=== PATIENT | female | born 1990 | race Caucasian/White ===

== ENCOUNTER → 2024-07-06 15:07 | Outpatient (BNVA) | payer MEDICAID, SELFPAY | PROVIDERS: Referring Provider Nurse Practitioner Family; Visit Provider Obstetrics & Gynecology | DX: N93.9 Abnormal uterine and vaginal bleeding, unspecified (principal) | CPT/HCPCS: 82670; 83001; 84146; 84443 ==

== ENCOUNTER 2024-09-04 05:42 | Day surgery (SDC) | payer MEDICAID, SELFPAY ==
--- NOTE | 2024-08-27 10:54 | P.ANESASSM_ITS ---
Pre-Anesthetic Assessment Height/Weight: Height 1.75 m Preop Diagnosis: Abnormal uterine bleeding, endometrial polyp Operation Date: 09/04/24 07:10 Proposed Procedures p Hysteroscopy w/ Myosure(Not Applicable) - Jesus Alberto Cornell MD s Dilation And Curettage (D&C) 71074, 40437, N84.0(Not Applicable) - Jesus Alberto Cornell MD Familial anesthetic complications: None Social No alcohol and No tobacco Exam alert, oriented x 3, clear to auscultation bilaterally and regular rate & rhythm Airway Mallampati: Class II Dentition: other (missing) Anesthetic Plan ASA status: 1 Anesthesia: General Risk of > 500 ml blood loss (7ml/kg in children): No Medications/Allergies Home Medications Medication Instructions Recorded Confirmed Last Taken Type No Known Home Medications 07/06/24 08/27/24 Unknown History Allergies Allergy/AdvReac Type Severity Reaction Status Date / Time No Known Allergies Allergy Verified 08/27/24 10:24 [facility] Anesthesia Family History Denies family history of Colon cancer Ovarian cancer Prostate cancer Diabetes Heart disease Breast cancer Hypertension Uterine cancer Thyroid disease Stroke Social History Smoking and tobacco/nicotine status: never used tobacco/nicotine Female Reproductive History Date of last menstrual period: 08/27/24 Data Anesthesia 08/27/24 10:40 08/27/24 10:40 Cardiac Studies: 2 No Data to Display
[2024-08-27 10:57] LABS: Bilirubin Urine Negative (Negative); Blood Urine 3+ (Negative); Glucose Urine UA Negative (Normal); Ketones Urine Negative (Negative); Leukocyte Esterase Urine Negative (Negative); Nitrate Urine Negative (Negative); Protein Urine Negative (Negative); Specific Gravity, Urine 1.013 (1.005-1.030); Urine Appearance Cloudy (CLEAR); Urine Color Yellow (Yellow)
[2024-08-27 10:59] LABS: Basophils % 0.4 %; Eosinophils # 0.2 10^3/uL (0.0-0.8); Eosinophils % 2.1 %; Hematocrit 39.9 % (36-47); Lymphocytes # 1.2 10^3/uL (0.8-4.8); Lymphocytes % 17.1 %; Mean Corpuscular HGB Conc 32.1 g/dL (30-55); Mean Corpuscular Hemoglobin 27.6 pg (27-33); Mean Platelet Volume 10.3 fL (7.4-10.4); Monocytes # 0.6 10^3/uL (0.2-0.9); Monocytes % 7.8 %; Neutrophils # 5.08 10^3/uL (1.8-7.7); Neutrophils % 72.5 %; Nucleated Red Blood Cells % 0 %; Platelet Count 218 10^3/cmm (157-399); Red Blood Count 4.64 10^6/uL (3.85-5.65); Red Cell Distribution Width 12.9 % (12.1-15.1); White Blood Count 7.02 10^3/uL (3.29-11.43)
[2024-08-27 11:03] LABS: Add Urine Microscopic? YES; Bacteria Urine None Seen /hpf; Hyaline Casts Urine 0-4 /lpf; RBC Urine >100 /hpf (0-2); Squamous Epithelial Cell Urine 0-5 /hpf (0-5); WBC Urine 0-5 /hpf (0-5)
[2024-08-27 11:08] LABS: Alanine Aminotransferase 18 U/L (0-33); Albumin Level 4.2 g/dL (3.5-5.2); Alkaline Phosphatase 62 U/L (35-105); Anion Gap 13.5 (5-19); Aspartate Amino Transferase 25 U/L (0-32); Blood Urea Nitrogen 14 mg/dL (6-20); Calcium 8.6 mg/dL (8.5-10.5); Carbon Dioxide 25 mmol/L (22-29); Chloride 105 mmol/L (98-107); Glomerular Filtration Rate 83.1 mL/min (90-130); Glucose 103 mg/dL (65-115); Osmolality Calculated 289 mOsm/kg (285-295); Potassium 4.5 mmol/L (3.5-5.1); Sodium 139 mmol/L (136-145); Total Bilirubin 0.3 mg/dL (0.15-1.2); Total Protein 7.2 g/dL (6.6-8.7)
[2024-08-27 11:09] LABS: Add Urine Culture? Yes
--- NOTE | 2024-09-03 16:40 | ANES.PREANE2 ---
Pre-Anesthetic Assessment Height/Weight: Height 5 ft 9 in Preop Diagnosis: Abnormal uterine bleeding, endometrial polyp Operation Date: 09/04/24 07:00 Proposed Procedures p Hysteroscopy w/ Myosure(Not Applicable) - Jesus Alberto Cornell MD s Dilation And Curettage (D&C) 85503, 66910, N84.0(Not Applicable) - Jesus Alberto Cornell MD Was Beta Renata taken within 24 hours: N/A Was Clonidine taken within 24 hours: N/A Social No alcohol and No tobacco Exam alert, oriented x 3, clear to auscultation bilaterally and regular rate & rhythm Airway Submandibular: within normal limits Cervical ROM: within normal limits Mallampati: Class I Dentition: full Anesthetic Plan ASA status: 1 Anesthesia: General Other: No prior issues with anesthesia NPO since yesterday evening Denies any cardiac or pulmonary issues Labs 08/27/2024 reviewed and acceptable for procedure METs greater than 4 Plan for general anesthesia Medications/Allergies Home Medications Medication Instructions Recorded Confirmed Last Taken Type No Known Home Medications 07/06/24 08/27/24 Unknown History Allergies Allergy/AdvReac Type Severity Reaction Status Date / Time No Known Allergies Allergy Verified 08/27/24 10:24 [facility] Anesthesia Family History Denies family history of Colon cancer Ovarian cancer Prostate cancer Diabetes Heart disease Breast cancer Hypertension Uterine cancer Thyroid disease Stroke Social History Smoking and tobacco/nicotine status: never used tobacco/nicotine Female Reproductive History Date of last menstrual period: 08/27/24 Data Anesthesia 08/27/24 10:40 08/27/24 10:40 Cardiac Studies: No Data to Display
[2024-09-04] VITALS (11 sets, daily range): BP systolic 89–117; BP diastolic 51–77; PULSE 68–84; RESP 13–18; TEMP 36.4–36.7; O2SAT 100; BMI 26.6
[2024-09-04] MEDS: scopolamine 1.5 Patch 1 PATCH TRANSDERMA (06:23)
[2024-09-04] MEDS: metroNIDAZOLE IV 500 MG/100 ML PREMIX 100 MG IV (06:44)
[2024-09-04] MEDS: sodium chloride 0.9% 500 ML IV (06:48)
[2024-09-04] MEDS: sodium chloride 0.9% 1,000 ML 30 ML IV (06:52)
--- NOTE | 2024-09-04 07:00 | W.PM.OPSUD ---
Surgery/Procedure H&P Update DATE OF PROCEDURE: September 04, 2024 DATE H&P PERFORMED: 08/27/24 H&P UPDATE INFORMATION: I have reviewed H&P completed within last 30 days, I have examined patient prior to procedure and No changes to prior documentation PREOP DIAGNOSIS: Abnormal uterine bleeding, endometrial polyp PLANNED PROCEDURE: Operation Date: 09/04/24 07:00 Proposed Procedures p Hysteroscopy w/ Myosure(Not Applicable) - Jesus Alberto Cornell MD s Dilation And Curettage (D&C) 92353, 53098, N84.0(Not Applicable) - Jesus Alberto Cornell MD
[2024-09-04] MEDS: ceFAZolin 2,000 mg SDV 2000 MG IVP (07:01)
[2024-09-04 07:02] LABS: OR HCG Qualitative Urine Negative (Negative)
[2024-09-04] MEDS: lidocaine-epi 2% PF 1:200,000 20 mL SDV 10 ML INJECTION (07:36)
--- NOTE | 2024-09-04 07:46 | PM.OP ---
Operative Report Date of procedure: September 04, 2024 Pre-op diagnosis: Abnormal uterine bleeding/endometrial polyp Post-op diagnosis: same Procedure done: Hysteroscopy Dilation and curettage via MyoSure Specimens removed/disposition: Endometrial curettings and endometrial polyp Surgeon: Jesus Alberto Cornell MD Estimated blood loss (mL): 20 IV fluids (mL): 900 Complications: None Procedure: After informed consent, the risks included but were not limited to bleeding, infection, injury to internal organs. The patient was counseled on a possible laparotomy and on the potential need for hysterectomy. The patient expressed understanding of the risks involved, all questions were answered, and the patient consented to the procedure. The patient was taken to the operating room where general anesthesia was administered. She was placed in the dorsal lithotomy position and prepped and draped in sterile fashion. A time out procedure was performed. The patient was examined under anesthesia and found to have a normal uterus with normal adnexa. A sterile weight speculum was placed in the vagina. The uterus was then gently sounded to 8 cm, and the cervix was dilated. The 0 degrees MyoSure hysteroscope was advanced gently to the uterine fundus while visualizing the monitor. Survey of the uterine cavity showed: Proliferative endometrium, the fundus shows normal proliferative endometrium; left ostium was visualized, and lateral wall with proliferative endometrium; right ostium visualized, and lateral wall with proliferative endometrium; anterior and posterior ray are with proliferative endometrium; endocervical canal is normal. The MyoSure device was advanced and the direct visualization the endometrium was morcellated without complication. At the end of morcellation the fluid deficit was 230 mL and was estimated at approximately 200 mL were on the floor. There was minimal bleeding noted and the tenaculum removed with goad hemostasis noted. The patient tolerated the procedure well. The patient was taken to the recovery area in stable condition.
--- NOTE | 2024-09-04 08:07 | PC.NURSE ---
LMA removed without issue
--- NOTE | 2024-09-04 10:30 | ANE.PACU2 ---
Inpatient post-anesthesia follow up: Airway intact: Yes Vital signs: Temperature 97.6 F Pulse Rate 84 Respiratory Rate 18 Blood Pressure 117/76 Pulse Oximetry 100 Oxygen Delivery Me thod Room Air Oxygen Flow Rate 8 Fraction of Inspir ed Oxygen Hydration adequate: Yes Nausea and vomiting: No Pain level: 1 Mental status: Baseline
== END 2024-09-04 10:30 | disposition home or self-care (01) ==
PROVIDERS: Student in an Organized Health Care Education/Training Program; Visit Provider Obstetrics & Gynecology
PROC: 0UDB8ZZ Extraction of Endometrium, Via Natural or Artificial Opening Endoscopic (ICD-10-PCS; CPT 58558; principal; 2024-09-04 07:00)
PROC: (CPT 58120; 2024-09-04 07:00)
DX: N93.9 Abnormal uterine and vaginal bleeding, unspecified (principal); N84.0 Polyp of corpus uteri
CPT/HCPCS: 58558; 36415; 80053; 81001; 81025; 85025; 86850; 86900; 87086; 88305; J0131; J0690; J1100; J1885; J2250; J2405; J2704; J3010; J3490; J7030; J7040